=== PATIENT | female | born 1955 | race Caucasian/White ===

== ENCOUNTER 2019-05-31 08:19 | Day surgery (SDC) | payer MEDICAID ==
[2019-05-29 09:30] LABS: BASOPHILS % (AUTO) 0.4 % (0-1); EOSINOPHILS # (AUTO) 0.1 X10'3 (0-0.9); EOSINOPHILS % (AUTO) 0.9 % (0-6); HEMATOCRIT 48.3 % (35.0-45.0); HEMOGLOBIN 15.6 g/dl (12.0-16.0); LYMPHOCYTES # (AUTO) 1.7 X10'3 (1.1-4.8); LYMPHOCYTES % (AUTO) 27.7 % (21-51); MEAN CORPUSCULAR HEMOGLOBIN 31.1 PG (27.0-31.0); MEAN CORPUSCULAR HGB CONC 32.3 g/dL (33.0-36.5); MEAN CORPUSCULAR VOLUME 96.2 FL (78-98); MEAN PLATELET VOLUME 7.6 FL (7.4-10.4); MONOCYTES # (AUTO) 0.4 X10'3 (0-0.9); MONOCYTES % (AUTO) 6.7 % (2-12); NEUTROPHILS # (AUTO) 3.9 X10'3 (1.8-7.7); NEUTROPHILS % (AUTO) 64.3 % (42-75); PLATELET COUNT 233 X10'3 (140-440); RED BLOOD COUNT 5.03 X10'6 (4.20-5.60); RED CELL DISTRIBUTION WIDTH 15.8 % (11.5-14.5); WHITE BLOOD COUNT 6.1 X10'3 (4.5-11.0)
[2019-05-29 09:44] LABS: PARTIAL THROMBOPLASTIN TIME 29 SECONDS (22-32)
[2019-05-29 09:46] LABS: ALANINE AMINOTRANSFERASE 31 U/L (12-78); ALBUMIN 3.9 G/DL (3.4-5.0); ALBUMIN/GLOBULIN RATIO 1.2 (1.1-1.5); ALKALINE PHOSPHATASE 102 IU/L (46-116); ANION GAP 12 (8-16); ASPARTATE AMINO TRANSFERASE 17 U/L (10-37); BILIRUBIN,TOTAL 0.4 MG/DL (0.1-1.0); BLOOD UREA NITROGEN 10 MG/DL (7-18); BUN/CREATININE RATIO 10.3 (6.6-38.0); CALCIUM 9.4 MG/DL (8.5-10.1); CHLORIDE 110 MMOL/L (99-107); CREATININE 0.97 MG/DL (0.40-0.90); GLUCOSE 129 MG/DL (70-104); POTASSIUM 3.9 MMOL/L (3.5-5.1); SODIUM 142 MMOL/L (135-145); TOTAL CARBON DIOXIDE 19.8 MMOL/L (24-32); TOTAL PROTEIN 7.2 G/DL (6.4-8.2); eGFR 58 ML/MIN
[2019-05-31] VITALS (14 sets, daily range): BP systolic 91–166; BP diastolic 45–87
[~2019-05-31] VITALS: Ht 170.2 cm; Wt 107.4 kg
[2019-05-31] MEDS ORDERED: nitroGLYCERIN 0.4mg SUBLingual tab SL PRN (08:35)
[2019-05-31] MEDS ORDERED: normal saline 1,000 ML IV SCH (08:40)
[2019-05-31] MEDS ORDERED: diphenhydrAMINE 25mg capsule PO PRN (08:40)
[2019-05-31] MEDS ORDERED: LORazepam 0.5 MG tablet PO PRN (08:40)
[2019-05-31] MEDS ORDERED: ATOR40TA PO (09:16)
[2019-05-31] MEDS ORDERED: OMEP40CA13 PO (09:16)
[2019-05-31] MEDS ORDERED: ESCI5TAB PO (09:16)
[2019-05-31] MEDS ORDERED: NITR0.4T48 SL (09:16)
[2019-05-31] MEDS ORDERED: TOPI25TA15 PO (09:16)
[2019-05-31] MEDS ORDERED: ASPI-1264 PO (09:16)
[2019-05-31] MEDS ORDERED: midazolam 2 mg/2 ml injection ONE (12:48)
[2019-05-31] MEDS ORDERED: fentaNYL/PF 50MCG/1 ML 2ML syringe ONE (12:49)
[2019-05-31] MEDS ORDERED: iohexol 350MG/ML 100ml bottle IV ONE (12:49)
[2019-05-31] MEDS ORDERED: LIDOcaine 1% (10mg/ml)w/preservative injection 20ml MDV ONE (12:49)
[2019-05-31] MEDS ORDERED: iohexol 350 MG/ML 50ML vial IV ONE (12:49)
[2019-05-31] MEDS ORDERED: HYDROcodone/acetaminophen 5mg/325mg tablet PO PRN (19:10)
[2019-05-31] MEDS ORDERED: OXAZEpam 15mg capsule PO PRN (19:10)
[2019-05-31] MEDS ORDERED: ondansetron/PF 4mg/2ml inj IV PRN (19:10)
[2019-05-31] MEDS ORDERED: proCHLORperazine 10 MG/2 ml inj IV PRN (19:10)
[2019-05-31] MEDS ORDERED: HYDROcodone/acetaminophen 10/325mg tab PO PRN (19:10)
== END 2019-05-31 19:50 | disposition home or self-care (01) ==
LOC: SSTAY O 08:19
PROVIDERS: ATTEND Internal Medicine Cardiovascular Disease
DX: I25.10 Atherosclerotic heart disease of native coronary artery without angina pectoris (principal); I25.82 Chronic total occlusion of coronary artery; M19.90 Unspecified osteoarthritis, unspecified site; F41.1 Generalized anxiety disorder; K21.9 Gastro-esophageal reflux disease without esophagitis; F17.210 Nicotine dependence, cigarettes, uncomplicated; I25.2 Old myocardial infarction; E11.9 Type 2 diabetes mellitus without complications; E78.00 Pure hypercholesterolemia, unspecified; J44.9 Chronic obstructive pulmonary disease, unspecified; F31.9 Bipolar disorder, unspecified; E66.9 Obesity, unspecified; Z68.37 Body mass index [BMI] 37.0-37.9, adult; Z88.1 Allergy status to other antibiotic agents; Z88.8 Allergy status to other drugs, medicaments and biological substances; Z79.82 Long term (current) use of aspirin; Z79.899 Other long term (current) drug therapy; Z90.49 Acquired absence of other specified parts of digestive tract; Z98.890 Other specified postprocedural states; Z96.60 Presence of unspecified orthopedic joint implant; Z79.01 Long term (current) use of anticoagulants
CPT/HCPCS: 36415; 71046; 80053; 83880; 85025; 85610; 85730; 93005; 93458; 99152; C1769; J1644; J2001; J2250; J3010; J7030; Q0163; Q9967; 76937; A4620; A6258; C1760

== ENCOUNTER 2020-09-20 10:10 | Inpatient (IN) | payer MEDICAID ==
[2020-09-17 14:20] LABS: BASOPHILS % (AUTO) 0.7 % (0-1); EOSINOPHILS # (AUTO) 0.1 X10'3 (0-0.9); EOSINOPHILS % (AUTO) 1.2 % (0-6); LYMPHOCYTES # (AUTO) 2.1 X10'3 (1.1-4.8); LYMPHOCYTES % (AUTO) 34.7 % (21-51); MEAN CORPUSCULAR HEMOGLOBIN 31.8 PG (27.0-31.0); MEAN CORPUSCULAR HGB CONC 32.9 g/dL (33.0-36.5); MEAN CORPUSCULAR VOLUME 96.7 FL (78-98); MEAN PLATELET VOLUME 8.5 FL (7.4-10.4); MONOCYTES # (AUTO) 0.5 X10'3 (0-0.9); MONOCYTES % (AUTO) 8.5 % (2-12); NEUTROPHILS # (AUTO) 3.3 X10'3 (1.8-7.7); NEUTROPHILS % (AUTO) 54.9 % (42-75); PRE OP HEMATOCRIT 40.4 % (35.0-45.0); PRE OP HEMOGLOBIN 13.3 g/dL (12.0-16.0); PRE OP PLATELET COUNT 170 X10'3 (140-440); RED BLOOD COUNT 4.18 X10'6 (4.20-5.60); RED CELL DISTRIBUTION WIDTH 14.9 % (11.5-14.5)
[2020-09-17 14:26] LABS: HEMOGLOBIN A1C 6.1 % (4.5-6.2)
[2020-09-17 14:29] LABS: PRE OP PROTIME 10.4 SECONDS (9.0-12.0)
[2020-09-17 14:31] LABS: ALBUMIN 3.8 G/DL (3.4-5.0); ALBUMIN/GLOBULIN RATIO 1.3 (1.1-1.5); ALKALINE PHOSPHATASE 129 IU/L (46-116); BLOOD UREA NITROGEN 12 MG/DL (7-18); BUN/CREATININE RATIO 11.4 (6.6-38.0); CALCIUM 9.1 MG/DL (8.5-10.1); CHLORIDE 111 MMOL/L (99-107); CREATININE 1.05 MG/DL (0.40-0.90); PRE OP ANION GAP 8 (8-16); PRE OP AST 56 U/L (10-37); PRE OP BILIRUB, TOTAL 0.4 MG/DL (0.0-1.0); PRE OP GLUCOSE 77 MG/DL (70-104); PRE OP POTASSIUM 4.2 MMOL/L (3.4-5.1); PRE OP SODIUM 145 MMOL/L (135-145); TOTAL CARBON DIOXIDE 25.6 MMOL/L (24-32); TOTAL PROTEIN 6.8 G/DL (6.4-8.2); eGFR 53 ML/MIN
[2020-09-17 14:32] LABS: CLARITY,URINE SLIGHTLY CLOUDY (Clear); COLOR,URINE YELLOW (Yellow); GLUCOSE, URINE NEGATIVE (Neg); KETONES,URINE NEGATIVE (Neg); LEUKOCYTE ESTERASE ,URINE NEGATIVE (Neg); NITRITES, URINE NEGATIVE (Neg); OCCULT BLOOD,URINE NEGATIVE (Neg); PROTEIN,URINE NEGATIVE (Neg); UROBILINOGEN,URINE 0.2 E.U/dL (0.2-1.0)
[2020-09-17 14:33] LABS: PRE OP ALT 99 U/L (30-65)
[2020-09-17 14:48] LABS: UA COLLECTION TYPE CLN CATCH MIDSTREAM
[2020-09-17 14:49] LABS: BACTERIA,URINE FEW /HPF (Neg); RBC,URINE 0-2 /HPF (0-2); SQUAMOUS EPITHELIAL CELL,UR FEW /LPF (FEW); WBC,URINE 0-4 /HPF (0-4)
[~2020-09-20] VITALS: Ht 170.2 cm; Wt 81.6 kg
[2020-09-20] VITALS (17 sets, daily range): BP systolic 104–138; BP diastolic 47–82
[~2020-09-20 10:10] MED LIST: ASPI-1264 PO; ATOR40TA PO; CALC1CAP PO; ESCI5TAB PO; NITR0.4T48 SL; OMEP40CA13 PO; SUMA100T16 PO; TIZA2TAB7 PO; TOPI25TA15 PO; TRAZ150T78 PO; VIT1CAPS46 PO; famotidine 20mg tablet PO ONE; ringers solution, lacted 1,000 ML IV SCH; vancomycin 1,500 MG in NS 300ml IV soln IV ONE
[2020-09-20] MEDS ORDERED: LIDOcaine 1% (10mg/ml) 2ml vial ONE (11:15)
[2020-09-20] MEDS ORDERED: BUPIVAcaine/PF 2.5 mg/ml (0.25%) 30ml vial ONE (12:07)
[2020-09-20] MEDS ORDERED: midazolam 2 mg/2 ml injection ONE (12:35)
[2020-09-20] MEDS ORDERED: fentaNYL /PF 50mcg/ml 5ml ampule ONE ×2 (12:35→17:40)
[2020-09-20] MEDS ORDERED: propofol inj 20 ML IV ONE (12:35)
[2020-09-20] MEDS ORDERED: LIDOcaine 2% (20mg/ml) 5ml vial ONE (12:35)
[2020-09-20] MEDS ORDERED: ondansetron/PF 4mg/2ml inj ONE ×2 (13:00→14:30)
[2020-09-20] MEDS ORDERED: sevoflurane 250ml liquid IH ONE (13:00)
[2020-09-20] MEDS ORDERED: neostigmine methylsulfate 1 MG/ML 10ml vial ONE ×2 (13:00→18:12)
[2020-09-20] MEDS ORDERED: dexamethasone sod phosphate 10mg/ml inj ONE (13:00)
[2020-09-20] MEDS ORDERED: rocuronium 10mg/ml inj IV ONE (13:00)
[2020-09-20] MEDS ORDERED: MIDAZolam 5mg/5ml vial ONE (13:09)
[2020-09-20] MEDS ORDERED: pancuronium br 1mg/ml inj IV ONE (14:22)
[2020-09-20] MEDS ORDERED: BUPIVAcaine/PF 2.5mg/ml (0.25%) 10ml vial ONE (15:17)
[2020-09-20] MEDS ORDERED: BUPIVACAINE liposomal/PF 13.3 MG/ML vial IM ONE (15:17)
[2020-09-20] MEDS ORDERED: ringers solution, lacted 1,000 ML IV SCH (17:30)
[2020-09-20] MEDS ORDERED: proCHLORperazine 10 MG/2 ml inj IV PRN (17:30)
[2020-09-20] MEDS ORDERED: meperidine/PF 25mg/ml syringe IV PRN ×3 (17:30)
[2020-09-20] MEDS ORDERED: morphine 4 MG/ML inj SYRINge IV PRN ×3 (17:30→18:35)
[2020-09-20] MEDS ORDERED: ondansetron/PF 4mg/2ml inj IV PRN ×2 (17:30→18:35)
[2020-09-20] MEDS ORDERED: morphine 2 MG/ML inj. syringe IV PRN (17:30)
[2020-09-20] MEDS ORDERED: acetaminophen 1,000mg/100ml IV 100 ML IV ONE (17:45)
[2020-09-20] MEDS ORDERED: glycopyrrolate 0.2mg/ml inj ONE (18:12)
--- NOTE | 2020-09-20 18:17 | NUR ---
Received from OR via ACCE BED , accompanied by Anesthesiologist ARIEL and report given by Anesthesiolgist. PATIENT WITH VSS. DENIES PAIN. TED DANIEL DONNED FOR LOW TEMPERATURE, TRIPLE LUMEN RIGHT NECK DRESSING IS CDI. ART LINE IN RIGHT UE WELL 20G PIV IN RIGHT UE. ALL PATENT. VSS. SCDS DONNED. SINGLE LUMEN CHEST TUBE WITH NO DRAINAGE PRESENT. AIR LEAK EVIDENT. ALBERT CATHETER PRESENT WITH CLEAR YELLOW URINE IN ATRIUM. VSS AT THIS TIME Addendum: 09/20/20 at 1828 by Marshall Crooks RN, RN Amended: Links added.
[2020-09-20] MEDS ORDERED: naloxone 0.4 mg/ml inj IV PRN (18:35)
[2020-09-20] MEDS ORDERED: CADD PCA waste documentation MC PRN (18:35)
[2020-09-20] MEDS ORDERED: HYDROcodone/acetaminophen 10/325mg tab PO PRN (18:35)
[2020-09-20] MEDS ORDERED: metoclopramide 5 mg/ml inj IV PRN (18:35)
[2020-09-20] MEDS ORDERED: albuterol 2.5 MG/3 ML nebule NEB PRN (18:35)
[2020-09-20 18:45] LABS: ABG BASE EXCESS -6.9 mmol/L (-2.0-2.0); ABG HCO3 22.5 mmol/L (22.0-26.0); ABG OXYGEN SATURATION 98.3 % (94-97); ABG PCO2 (T) 59.5 mmHg (32.0-45.0); ABG PO2 (T) 157.1 mmHg (75.0-100.0); FCOHb 0.7 % (0.0-3.9); FMetHb 0.2 % (0.0-1.5); FO2Hb 97.4 % (94-97); PATIENT TEMPERATURE 35.9; TOTAL HEMOGLOBIN 13.6 G/dl (12.0-16.0)
[2020-09-20] MEDS ORDERED: naloxone 0.4 mg/ml inj IV ONE (18:50)
--- NOTE | 2020-09-20 19:07 | NUR ---
DORA IN RR OF 135 Addendum: 09/20/20 at 1907 by Marshall Banerjee - CB RN Amended: Links added.
[2020-09-20 19:46] LABS: ABG HCO3 21.4 mmol/L (22.0-26.0); ABG OXYGEN SATURATION 95.3 % (94-97); ABG PCO2 (T) 43.7 mmHg (32.0-45.0); ABG PO2 (T) 79.6 mmHg (75.0-100.0); FCOHb 0.8 % (0.0-3.9); FMetHb 0.1 % (0.0-1.5); FO2Hb 94.4 % (94-97); PATIENT TEMPERATURE 36.5; RESPIRATORY RATE 18 b/min
--- NOTE | 2020-09-20 19:47 | NUR ---
ALL CRITERIA FOR TRANSFER TO THE FLOOR HAS BEEN ACHIEVED. REPORT GIVEN AND ALL QUESTIONS ANSWERED, VSS. BED LOW 2 RAILS UP, CALL LIGHT PRESENT AND PATIENT HOOKED UP TO ALL LINES AND VSS. PATIENTS RN PRESENT TO ACCEPT CARE. BIPAP MACHINE ON STANDBY PER MD TOLLIVER. VSS. DENIES PAIN CHEST TUBE STILL WITH AIR LEAK AND NO DRAINAGE AT THIS TIME. ART LINE ZEROED AND RN AT BEDSIDE TO ASSIST WITH SET UP AND TO ACCEPT CARE OF PATIENT. Addendum: 09/20/20 at 2014 by Marshall Banerjee - CB RN Amended: Links added.
[2020-09-20] MEDS: docusate sod 100mg capsule PO SCH (21:56)
[2020-09-20] MEDS: gabapentin 300mg capsule PO SCH (21:58)
[2020-09-20] MEDS: clindamycin 600mg/D5W 50ml 50 ML IV SCH (22:00)
[2020-09-20] MEDS: potassium Cl 20mEq in D5-NS 1,000 ML IV SCH (22:07)
[2020-09-21] VITALS (7 sets, daily range): BP systolic 94–125; BP diastolic 32–58
[2020-09-21] MEDS: clindamycin 600mg/D5W 50ml 50 ML IV SCH ×4 (02:31→19:14)
[2020-09-21] MEDS: HYDROcodone/acetaminophen 10/325mg tab PO PRN ×2 (05:02→19:09)
[2020-09-21] MEDS: potassium Cl 20mEq in D5-NS 1,000 ML IV SCH (08:45)
[2020-09-21] MEDS: docusate sod 100mg capsule PO SCH ×2 (09:20→19:11)
[2020-09-21] MEDS: gabapentin 300mg capsule PO SCH ×2 (09:21→19:12)
--- NOTE | 2020-09-21 12:00 | NUR ---
DR. TOLLIVER @ BEDSIDE, CHEST TUBE TO H20 SEAL, NEW ORDER RECEIVED: REPEAT CXR @ 1600
[2020-09-21] MEDS ORDERED: nitroGLYCERIN 0.4mg SUBLingual tab SL PRN (12:50)
[2020-09-21] MEDS ORDERED: SUMAtriptan 25 MG tablet PO PRN (12:55)
[2020-09-21] MEDS ORDERED: cyclobenzaprine 10mg tablet PO PRN (13:00)
--- NOTE | 2020-09-21 15:34 | NUR ---
Patient has refused BG checks all day she states she does not want insulin either. She states she will maybe let nurse check her b/f dinner.
--- NOTE | 2020-09-21 16:11 | NUR ---
DR. TOLLIVER REVIEWED CXR. NEW ORDER RECEIVED: CHEST TUBE BACK TO SUCTION @ 20
--- NOTE | 2020-09-21 16:11 | NUR ---
Refusing BG checks states might let nurse do one prior to dinner she will think about it educated on BG, DM, and higher with body under stress and healing she stated understanding Addendum: 09/21/20 at 1621 by Lela Lewis RN Amended: Links added.
[2020-09-21] MEDS: calcium carbonate/vitamin D3 tablet PO SCH (19:10)
[2020-09-21] MEDS: lactobacillus rhamnosus 10,000 MMU CELLS/CAPSULE PO SCH (19:11)
[2020-09-21] MEDS: topiramate 100mg tablet PO SCH (19:13)
[2020-09-21] MEDS: traZODone 150mg tablet PO SCH (22:15)
[2020-09-21] MEDS: ESCITALOPRAM OXALATE 5 MG TABLET PO SCH (22:15)
[2020-09-22] MEDS: clindamycin 600mg/D5W 50ml 50 ML IV SCH ×4 (01:57→20:32)
[2020-09-22 02:00] VITALS: BP 117/56
[2020-09-22] MEDS: HYDROcodone/acetaminophen 10/325mg tab PO PRN ×3 (02:19→20:41)
--- NOTE | 2020-09-22 06:36 | NUR ---
Patient in room PCU 3013. I have received report from Petr VIVAR and had the opportunity to ask questions and assume patient care.
[2020-09-22 06:43] LABS: BASOPHILS % (AUTO) 0 % (0-1); EOSINOPHILS % (AUTO) 0.5 % (0-6); HEMATOCRIT 31.2 % (35.0-45.0); HEMOGLOBIN 10.7 g/dl (12.0-16.0); LYMPHOCYTES # (AUTO) 1.3 X10'3 (1.1-4.8); LYMPHOCYTES % (AUTO) 16.8 % (21-51); MEAN CORPUSCULAR HEMOGLOBIN 33.1 PG (27.0-31.0); MEAN CORPUSCULAR HGB CONC 34.2 g/dL (33.0-36.5); MEAN CORPUSCULAR VOLUME 96.9 FL (78-98); MEAN PLATELET VOLUME 7.9 FL (7.4-10.4); MONOCYTES # (AUTO) 0.4 X10'3 (0-0.9); MONOCYTES % (AUTO) 4.7 % (2-12); NEUTROPHILS # (AUTO) 6.1 X10'3 (1.8-7.7); PLATELET COUNT 131 X10'3 (140-440); RED BLOOD COUNT 3.22 X10'6 (4.20-5.60); RED CELL DISTRIBUTION WIDTH 14.6 % (11.5-14.5); WHITE BLOOD COUNT 7.9 X10'3 (4.5-11.0)
[2020-09-22 07:00] VITALS: BP 134/55
[2020-09-22 07:10] LABS: ALANINE AMINOTRANSFERASE 56 U/L (12-78); ALBUMIN 2.7 G/DL (3.4-5.0); ALKALINE PHOSPHATASE 96 IU/L (46-116); ANION GAP 6 (8-16); ASPARTATE AMINO TRANSFERASE 30 U/L (10-37); BILIRUBIN,TOTAL 0.5 MG/DL (0.1-1.0); BLOOD UREA NITROGEN 9 MG/DL (7-18); BUN/CREATININE RATIO 10.6 (6.6-38.0); CALCIUM 8.4 MG/DL (8.5-10.1); CHLORIDE 108 MMOL/L (99-107); CREATININE 0.85 MG/DL (0.40-0.90); GLUCOSE 122 MG/DL (70-104); MAGNESIUM 1.8 MG/DL (1.5-2.4); PHOSPHORUS 2.5 MG/DL (2.3-4.5); POTASSIUM 3.7 MMOL/L (3.5-5.1); SODIUM 140 MMOL/L (135-145); TOTAL PROTEIN 5.3 G/DL (6.4-8.2); eGFR 67 ML/MIN
[2020-09-22] MEDS: pantoprazole 40mg Tablet.DR PO SCH (07:56)
[2020-09-22] MEDS: docusate sod 100mg capsule PO SCH ×2 (07:56→20:32)
[2020-09-22] MEDS: gabapentin 300mg capsule PO SCH (07:56)
[2020-09-22] MEDS: atorvastatin 20mg tablet PO SCH (07:57)
[2020-09-22] MEDS: beta-carotene(A) w/C & E + minerals tab PO SCH (07:57)
[2020-09-22] MEDS: lactobacillus rhamnosus 10,000 MMU CELLS/CAPSULE PO SCH ×2 (07:57→20:32)
[2020-09-22] MEDS: calcium carbonate/vitamin D3 tablet PO SCH (07:57)
[2020-09-22] MEDS: topiramate 100mg tablet PO SCH ×2 (07:57→20:32)
[2020-09-22 11:00] VITALS: BP 100/47
[2020-09-22 17:00] VITALS: BP 135/56
[2020-09-22 18:00] VITALS: BP 103/48
--- NOTE | 2020-09-22 18:11 | NUR ---
Problems reprioritized. Patient report given, questions answered & plan of care reviewed with Juanito VIVAR.
[2020-09-22] MEDS: ESCITALOPRAM OXALATE 5 MG TABLET PO SCH (20:32)
[2020-09-22] MEDS: traZODone 150mg tablet PO SCH (20:32)
[2020-09-22] MEDS ORDERED: magnesium hydroxide 30ml (MOM) UD suspension PO ONE (20:35)
[2020-09-22 22:00] VITALS: BP 93/43
--- NOTE | 2020-09-22 22:00 | NUR ---
PT'S SATS DOWN TO 90% ON RA. PLACED ON 2 LPM O2 OVERNIGHT.
[2020-09-23] VITALS (9 sets, daily range): BP systolic 94–114; BP diastolic 43–58
[2020-09-23] MEDS: clindamycin 600mg/D5W 50ml 50 ML IV SCH ×4 (01:59→19:42)
[2020-09-23 06:34] LABS: BASOPHILS % (AUTO) 0.1 % (0-1); EOSINOPHILS # (AUTO) 0.1 X10'3 (0-0.9); EOSINOPHILS % (AUTO) 0.8 % (0-6); HEMATOCRIT 32.8 % (35.0-45.0); HEMOGLOBIN 10.9 g/dl (12.0-16.0); LYMPHOCYTES # (AUTO) 1.3 X10'3 (1.1-4.8); MEAN CORPUSCULAR HEMOGLOBIN 32.5 PG (27.0-31.0); MEAN CORPUSCULAR HGB CONC 33.3 g/dL (33.0-36.5); MEAN CORPUSCULAR VOLUME 97.6 FL (78-98); MEAN PLATELET VOLUME 7.8 FL (7.4-10.4); MONOCYTES # (AUTO) 0.3 X10'3 (0-0.9); NEUTROPHILS # (AUTO) 4.7 X10'3 (1.8-7.7); NEUTROPHILS % (AUTO) 74.1 % (42-75); PLATELET COUNT 130 X10'3 (140-440); RED BLOOD COUNT 3.36 X10'6 (4.20-5.60); RED CELL DISTRIBUTION WIDTH 14.6 % (11.5-14.5); WHITE BLOOD COUNT 6.3 X10'3 (4.5-11.0)
[2020-09-23 06:54] LABS: ALANINE AMINOTRANSFERASE 48 U/L (12-78); ALBUMIN 2.6 G/DL (3.4-5.0); ALBUMIN/GLOBULIN RATIO 0.9 (1.1-1.5); ALKALINE PHOSPHATASE 101 IU/L (46-116); ANION GAP 3 (8-16); ASPARTATE AMINO TRANSFERASE 26 U/L (10-37); BILIRUBIN,TOTAL 0.5 MG/DL (0.1-1.0); BLOOD UREA NITROGEN 8 MG/DL (7-18); CALCIUM 8.5 MG/DL (8.5-10.1); CHLORIDE 110 MMOL/L (99-107); GLUCOSE 110 MG/DL (70-104); PHOSPHORUS 2.3 MG/DL (2.3-4.5); POTASSIUM 4.1 MMOL/L (3.5-5.1); SODIUM 143 MMOL/L (135-145); TOTAL CARBON DIOXIDE 30.4 MMOL/L (24-32); TOTAL PROTEIN 5.5 G/DL (6.4-8.2); eGFR 72 ML/MIN
--- NOTE | 2020-09-23 07:00 | NUR ---
Patient in room PCU 3013. I have received report from Juanito VIVAR and had the opportunity to ask questions and assume patient care.
--- NOTE | 2020-09-23 07:04 | NUR ---
Problems reprioritized. Patient report given, questions answered & plan of care reviewed with PEACE. Addendum: 09/23/20 at 0705 by Tim Daniel RN Amended: Links added.
[2020-09-23] MEDS: docusate sod 100mg capsule PO SCH ×2 (08:38→19:42)
[2020-09-23] MEDS: lactobacillus rhamnosus 10,000 MMU CELLS/CAPSULE PO SCH ×2 (08:38→19:42)
[2020-09-23] MEDS: atorvastatin 20mg tablet PO SCH (08:38)
[2020-09-23] MEDS: beta-carotene(A) w/C & E + minerals tab PO SCH (08:39)
[2020-09-23] MEDS: topiramate 100mg tablet PO SCH ×2 (08:39→19:42)
[2020-09-23] MEDS: calcium carbonate/vitamin D3 tablet PO SCH (08:39)
[2020-09-23] MEDS: pantoprazole 40mg Tablet.DR PO SCH (08:51)
[2020-09-23] MEDS: aspirin 325mg tablet PO SCH (09:15)
[2020-09-23] MEDS ORDERED: fentaNYL/PF 50MCG/1 ML 2ML syringe ONE (09:58)
[2020-09-23] MEDS: HYDROcodone/acetaminophen 10/325mg tab PO PRN ×2 (15:39→19:42)
--- NOTE | 2020-09-23 18:20 | NUR ---
Patient in room PCU 3013. I have received report from CB Turk and had the opportunity to ask questions and assume patient care.
--- NOTE | 2020-09-23 18:30 | NUR ---
Problems reprioritized. Patient report given, questions answered & plan of care reviewed with Janis Saunders RN.
[2020-09-23] MEDS: traZODone 150mg tablet PO SCH (21:37)
[2020-09-23] MEDS: ESCITALOPRAM OXALATE 5 MG TABLET PO SCH (21:37)
[2020-09-24 02:00] VITALS: BP 110/50
[2020-09-24] MEDS: clindamycin 600mg/D5W 50ml 50 ML IV SCH ×4 (02:28→20:09)
[2020-09-24] MEDS: HYDROcodone/acetaminophen 10/325mg tab PO PRN ×3 (02:34→20:21)
[2020-09-24 06:00] VITALS: BP 106/55
--- NOTE | 2020-09-24 06:34 | NUR ---
Problems reprioritized. Patient report given, questions answered & plan of care reviewed with CB Marx.
--- NOTE | 2020-09-24 07:30 | NUR ---
Patient is refusing accu checks
[2020-09-24] MEDS: atorvastatin 20mg tablet PO SCH (07:49)
[2020-09-24] MEDS: lactobacillus rhamnosus 10,000 MMU CELLS/CAPSULE PO SCH ×2 (07:49→20:09)
[2020-09-24] MEDS: pantoprazole 40mg Tablet.DR PO SCH (07:49)
[2020-09-24] MEDS: docusate sod 100mg capsule PO SCH ×2 (07:49→20:09)
[2020-09-24] MEDS: beta-carotene(A) w/C & E + minerals tab PO SCH (07:49)
[2020-09-24] MEDS: calcium carbonate/vitamin D3 tablet PO SCH (07:50)
[2020-09-24] MEDS: topiramate 100mg tablet PO SCH ×2 (07:50→20:10)
[2020-09-24 08:05] LABS: BASOPHILS % (AUTO) 0.3 % (0-1); EOSINOPHILS # (AUTO) 0.1 X10'3 (0-0.9); EOSINOPHILS % (AUTO) 1.4 % (0-6); HEMATOCRIT 34.4 % (35.0-45.0); HEMOGLOBIN 11.7 g/dl (12.0-16.0); LYMPHOCYTES # (AUTO) 1.6 X10'3 (1.1-4.8); LYMPHOCYTES % (AUTO) 27.5 % (21-51); MEAN CORPUSCULAR HEMOGLOBIN 32.7 PG (27.0-31.0); MEAN CORPUSCULAR HGB CONC 33.9 g/dL (33.0-36.5); MEAN CORPUSCULAR VOLUME 96.7 FL (78-98); MEAN PLATELET VOLUME 8.7 FL (7.4-10.4); MONOCYTES # (AUTO) 0.4 X10'3 (0-0.9); MONOCYTES % (AUTO) 6.1 % (2-12); NEUTROPHILS # (AUTO) 3.7 X10'3 (1.8-7.7); NEUTROPHILS % (AUTO) 64.7 % (42-75); PLATELET COUNT 154 X10'3 (140-440); RED BLOOD COUNT 3.56 X10'6 (4.20-5.60); RED CELL DISTRIBUTION WIDTH 14.5 % (11.5-14.5); WHITE BLOOD COUNT 5.8 X10'3 (4.5-11.0)
[2020-09-24 08:27] LABS: ALANINE AMINOTRANSFERASE 47 U/L (12-78); ALBUMIN 2.6 G/DL (3.4-5.0); ALBUMIN/GLOBULIN RATIO 0.8 (1.1-1.5); ALKALINE PHOSPHATASE 104 IU/L (46-116); ANION GAP 4 (8-16); ASPARTATE AMINO TRANSFERASE 27 U/L (10-37); BILIRUBIN,TOTAL 0.5 MG/DL (0.1-1.0); BLOOD UREA NITROGEN 8 MG/DL (7-18); BUN/CREATININE RATIO 9.4 (6.6-38.0); CALCIUM 8.9 MG/DL (8.5-10.1); CHLORIDE 109 MMOL/L (99-107); CREATININE 0.85 MG/DL (0.40-0.90); GLUCOSE 103 MG/DL (70-104); PHOSPHORUS 2.7 MG/DL (2.3-4.5); POTASSIUM 4.3 MMOL/L (3.5-5.1); SODIUM 141 MMOL/L (135-145); TOTAL CARBON DIOXIDE 27.8 MMOL/L (24-32); TOTAL PROTEIN 5.7 G/DL (6.4-8.2); eGFR 67 ML/MIN
[2020-09-24 11:00] VITALS: BP 105/53
[2020-09-24 15:00] VITALS: BP 105/54
[2020-09-24 18:00] VITALS: BP 105/57
--- NOTE | 2020-09-24 18:34 | NUR ---
Patient in room PCU 3013. I have received report from Araseli VIVAR and had the opportunity to ask questions and assume patient care.
--- NOTE | 2020-09-24 19:40 | NUR ---
New order obtained for MOM per patients' request.
[2020-09-24] MEDS: traZODone 150mg tablet PO SCH (20:10)
[2020-09-24] MEDS: ESCITALOPRAM OXALATE 5 MG TABLET PO SCH (20:10)
[2020-09-24] MEDS: magnesium hydroxide 30ml (MOM) UD suspension PO SCH (20:10)
[2020-09-24 22:00] VITALS: BP 99/43
[2020-09-25] VITALS: BP 116/45
[2020-09-25 02:00] VITALS: BP 101/44
[2020-09-25] MEDS: clindamycin 600mg/D5W 50ml 50 ML IV SCH ×3 (02:55→14:47)
[2020-09-25] MEDS: HYDROcodone/acetaminophen 10/325mg tab PO PRN ×2 (05:51→14:56)
--- NOTE | 2020-09-25 06:22 | NUR ---
Problems reprioritized. Patient report given, questions answered & plan of care reviewed with Kala VIVAR.
--- NOTE | 2020-09-25 06:43 | NUR ---
Patient in room U 3013. I have received report from CB Castrejon and had the opportunity to ask questions and assume patient care. Patient awake in bed and in no acute distress.
--- NOTE | 2020-09-25 06:45 | NUR ---
Problems reprioritized. Patient report given, questions answered & plan of care reviewed with Kala VIVAR.
[2020-09-25 07:00] VITALS: BP 108/46
[2020-09-25] MEDS: atorvastatin 20mg tablet PO SCH (08:00)
[2020-09-25 08:29] LABS: BASOPHILS % (AUTO) 0.2 % (0-1); EOSINOPHILS # (AUTO) 0.1 X10'3 (0-0.9); EOSINOPHILS % (AUTO) 1.2 % (0-6); HEMATOCRIT 32.7 % (35.0-45.0); HEMOGLOBIN 11.1 g/dl (12.0-16.0); LYMPHOCYTES % (AUTO) 18.6 % (21-51); MEAN CORPUSCULAR HEMOGLOBIN 32.7 PG (27.0-31.0); MEAN CORPUSCULAR VOLUME 96.3 FL (78-98); MEAN PLATELET VOLUME 8.1 FL (7.4-10.4); MONOCYTES # (AUTO) 0.4 X10'3 (0-0.9); MONOCYTES % (AUTO) 7.1 % (2-12); NEUTROPHILS # (AUTO) 3.9 X10'3 (1.8-7.7); NEUTROPHILS % (AUTO) 72.9 % (42-75); PLATELET COUNT 169 X10'3 (140-440); RED CELL DISTRIBUTION WIDTH 14.4 % (11.5-14.5); WHITE BLOOD COUNT 5.4 X10'3 (4.5-11.0)
[2020-09-25] MEDS: calcium carbonate/vitamin D3 tablet PO SCH (08:48)
[2020-09-25] MEDS: magnesium hydroxide 30ml (MOM) UD suspension PO SCH (08:48)
[2020-09-25] MEDS: aspirin 325mg tablet PO SCH (08:48)
[2020-09-25 08:50] LABS: ALANINE AMINOTRANSFERASE 41 U/L (12-78); ALBUMIN 2.4 G/DL (3.4-5.0); ALBUMIN/GLOBULIN RATIO 0.8 (1.1-1.5); ALKALINE PHOSPHATASE 103 IU/L (46-116); ANION GAP 7 (8-16); ASPARTATE AMINO TRANSFERASE 22 U/L (10-37); BILIRUBIN,TOTAL 0.4 MG/DL (0.1-1.0); BLOOD UREA NITROGEN 11 MG/DL (7-18); BUN/CREATININE RATIO 14.9 (6.6-38.0); CHLORIDE 107 MMOL/L (99-107); CREATININE 0.74 MG/DL (0.40-0.90); GLUCOSE 106 MG/DL (70-104); PHOSPHORUS 3.6 MG/DL (2.3-4.5); SODIUM 142 MMOL/L (135-145); TOTAL CARBON DIOXIDE 27.7 MMOL/L (24-32); TOTAL PROTEIN 5.4 G/DL (6.4-8.2); eGFR 79 ML/MIN
[2020-09-25] MEDS: topiramate 100mg tablet PO SCH (08:50)
[2020-09-25] MEDS: beta-carotene(A) w/C & E + minerals tab PO SCH (08:50)
[2020-09-25] MEDS: pantoprazole 40mg Tablet.DR PO SCH (08:51)
[2020-09-25] MEDS: lactobacillus rhamnosus 10,000 MMU CELLS/CAPSULE PO SCH (08:51)
[2020-09-25] MEDS: docusate sod 100mg capsule PO SCH (08:57)
[2020-09-25 11:00] VITALS: BP 103/49
--- NOTE | 2020-09-25 14:19 | NUR ---
Initial: Pt s/p robotic assisted thorascopic RLL wedge resection with right lower lobectomy, node dissection, and chest tube placement. Pt on a regular diet with fluctuating PO intake averaging 75% PO intake with 50% PO intake x 3 most recent meals. LBM 09/24 documented as small, previously without a BM since 09/19. Constipation likely impacting appetite and PO intake. Pt receiving routine Colace and started on routine MoM 09/24. D/w dietary to send prunes and prune juice with next meal to further assist with bowel regularity. Will continue to follow. Recommendations: 1) Continue regular diet 2) Monitor need for ONS 3) Routine bowel care 4) Scaled weights per rx Addendum: 09/25/20 at [address] Amended: Links added.
[2020-09-25 15:00] VITALS: BP 104/53
--- NOTE | 2020-09-25 17:04 | NUR ---
Patient ambulated 900 ft prior to discharge with no issues.
--- NOTE | 2020-09-25 18:10 | NUR ---
Patient stable for discharge per MD orders. All discharge instructions reviewed and questions answered appropriately. Belongings collected and sent home with the patient. Patient has a follow up appointment set up with Dr. Jimenes for 09/27 at 0900. Patient's son educted on drainage of system. PIV discontinued. fight manager discontinued. Patient wheeled down to the lobby by her son and left via private vehicle. Patient given a written prescription for [place] on discharge.
== END 2020-09-25 18:10 | disposition home or self-care (01) | DRG 120 ==
LOC: PAS IN 10:10 → UNDOADMIN 10:10 → EDSTATUS 12:30 → PAS IN 18:32 → MED 3N 19:58 → PAS IN 19:58 → PCU 3S 09-22 06:01
PROVIDERS: ADMIT Surgery; ATTEND Surgery
PROC: 0BTF4ZZ Resection of Right Lower Lung Lobe, Percutaneous Endoscopic Approach (ICD-10-PCS; 2020-09-20)
PROC: 8E0W4CZ Robotic Assisted Procedure of Trunk Region, Percutaneous Endoscopic Approach (ICD-10-PCS; principal; 2020-09-20 13:00)
PROC: 0W9930Z Drainage of Right Pleural Cavity with Drainage Device, Percutaneous Approach (ICD-10-PCS; 2020-09-23)
PROC: 5A09357 Assistance with Respiratory Ventilation, Less than 24 Consecutive Hours, Continuous Positive Airway Pressure (ICD-10-PCS; 2020-09-23)
DX: C34.31 Malignant neoplasm of lower lobe, right bronchus or lung (principal); Z20.828 Contact with and (suspected) exposure to other viral communicable diseases
CPT/HCPCS: 32557; 36415; 36600; 71045; 71046; 71250; 77012; 80053; 81001; 82803; 82948; 83036; 83735; 84100; 85018; 85025; 85610; 85730; 86885; 86900; 86901; 86920; 87081; 87635; 93005; 94660; 94760; 97116; 97161; 97530; A4215; A4618; A6258; A6449; A7000; A7048; C1758; C9250; C9290; G0378; J0131; J1100; J2001; J2175; J2250; J2310; J2405; J2704; J2710; J3010; J3370; J3480; J3490; J7040; J7120

== ENCOUNTER 2020-10-07 10:44 | Inpatient (IN) | payer MEDICAID ==
[2020-10-07] VITALS (9 sets, daily range): BP systolic 112–147; BP diastolic 56–77
[~2020-10-07] VITALS: Ht 170.2 cm; Wt 84.4 kg
[~2020-10-07 10:44] MED LIST changes: -famotidine 20mg tablet PO ONE; -ringers solution, lacted 1,000 ML IV SCH; -vancomycin 1,500 MG in NS 300ml IV soln IV ONE
[2020-10-07 11:55] LABS: BASOPHILS % (AUTO) 0.5 % (0-1); EOSINOPHILS # (AUTO) 0.2 X10'3 (0-0.9); HEMATOCRIT 39.4 % (35.0-45.0); HEMOGLOBIN 12.9 g/dl (12.0-16.0); LYMPHOCYTES # (AUTO) 1.7 X10'3 (1.1-4.8); LYMPHOCYTES % (AUTO) 24.1 % (21-51); MEAN CORPUSCULAR HEMOGLOBIN 31.5 PG (27.0-31.0); MEAN CORPUSCULAR HGB CONC 32.8 g/dL (33.0-36.5); MEAN PLATELET VOLUME 6.9 FL (7.4-10.4); MONOCYTES # (AUTO) 0.5 X10'3 (0-0.9); MONOCYTES % (AUTO) 7.3 % (2-12); NEUTROPHILS # (AUTO) 4.7 X10'3 (1.8-7.7); NEUTROPHILS % (AUTO) 65.1 % (42-75); PLATELET COUNT 309 X10'3 (140-440); RED CELL DISTRIBUTION WIDTH 14.7 % (11.5-14.5); WHITE BLOOD COUNT 7.2 X10'3 (4.5-11.0)
[2020-10-07] MEDS ORDERED: mag hydrox/Alum hydrox/simeth 30ml oral suspension PO PRN (12:05)
[2020-10-07] MEDS ORDERED: potassium Cl 20 mEq SR tablet PO PRN ×2 (12:05)
[2020-10-07] MEDS ORDERED: bisacodyl 10mg suppository rectal RC PRN (12:05)
[2020-10-07] MEDS ORDERED: magnesium Cl slow-release 64mg tablet PO PRN (12:05)
[2020-10-07] MEDS ORDERED: diphenhydrAMINE 50 mg/ml inj IV PRN (12:05)
[2020-10-07] MEDS ORDERED: diphenhydrAMINE 25mg capsule PO PRN (12:05)
[2020-10-07] MEDS ORDERED: HYDROcodone/acetaminophen 5mg/325mg tablet PO PRN (12:05)
[2020-10-07] MEDS ORDERED: ondansetron/PF 4mg/2ml inj IV PRN (12:05)
[2020-10-07] MEDS ORDERED: ipratropium/albuterol 3ml nebule NEB PRN (12:05)
[2020-10-07] MEDS ORDERED: acetaminophen 325mg tablet PO PRN ×2 (12:05)
[2020-10-07] MEDS ORDERED: acetaminophen 650mg rectal suppository RC PRN (12:05)
[2020-10-07] MEDS ORDERED: magnesium hydroxide 30ml (MOM) UD suspension PO PRN (12:05)
[2020-10-07] MEDS ORDERED: magnesium 4gm in 100ml NS 100 ML IV PRN (12:05)
[2020-10-07] MEDS ORDERED: potassium Cl 40MEQ/1/2NS 520ml 520 ML IV PRN ×2 (12:05)
[2020-10-07] MEDS ORDERED: magnesium 2GM in 50ml NS 50 ML IV PRN (12:05)
[2020-10-07 12:11] LABS: PARTIAL THROMBOPLASTIN TIME 25 SECONDS (22-32)
[2020-10-07 12:25] LABS: ALANINE AMINOTRANSFERASE 82 U/L (12-78); ALBUMIN 3.5 G/DL (3.4-5.0); ALBUMIN/GLOBULIN RATIO 1.2 (1.1-1.5); ALKALINE PHOSPHATASE 137 IU/L (46-116); ANION GAP 7 (8-16); ASPARTATE AMINO TRANSFERASE 59 U/L (10-37); BILIRUBIN,TOTAL 0.5 MG/DL (0.1-1.0); BLOOD UREA NITROGEN 11 MG/DL (7-18); BUN/CREATININE RATIO 11.8 (6.6-38.0); CALCIUM 9.4 MG/DL (8.5-10.1); CHLORIDE 109 MMOL/L (99-107); CREATININE 0.93 MG/DL (0.40-0.90); GLUCOSE 108 MG/DL (70-104); POTASSIUM 4.8 MMOL/L (3.5-5.1); SODIUM 145 MMOL/L (135-145); TOTAL CARBON DIOXIDE 29.2 MMOL/L (24-32); TOTAL PROTEIN 6.5 G/DL (6.4-8.2); eGFR 61 ML/MIN
[2020-10-07] MEDS ORDERED: fentaNYL/PF 50MCG/1 ML 2ML syringe ONE (12:26)
[2020-10-07] MEDS ORDERED: OMEP-50 PO (12:27)
[2020-10-07] MEDS ORDERED: SUCR1TAB PO (12:27)
[2020-10-07] MEDS ORDERED: midazolam 2 mg/2 ml injection ONE (12:31)
--- NOTE | 2020-10-07 12:50 | NUR ---
breaking primary RN, pt is off unit in IR getting a chest tube
--- NOTE | 2020-10-07 13:18 | NUR ---
PT IS BACK FROM IR, SHE IS HOOKED TO SUCTION, VSS
[2020-10-07] MEDS: normal saline 1000ml 1,000 ML IV SCH ×2 (13:24→22:05)
--- NOTE | 2020-10-07 14:43 | NUR ---
patient arrived to unit with CT intact.
[2020-10-07] MEDS: HYDROcodone/acetaminophen 10/325mg tab PO PRN ×2 (15:13→19:40)
[2020-10-07] MEDS ORDERED: SUMAtriptan 25 MG tablet PO PRN (16:40)
[2020-10-07] MEDS ORDERED: nitroGLYCERIN 0.4mg SUBLingual tab SL PRN (16:40)
[2020-10-07] MEDS ORDERED: tizanidine 4mg tablet PO PRN (17:00)
[2020-10-07] MEDS: sucralfate 1 gm tablet PO SCH ×2 (17:21→21:22)
--- NOTE | 2020-10-07 18:20 | NUR ---
Problems reprioritized. Patient report given, questions answered & plan of care reviewed with Lucía VIVAR float from M/S.
--- NOTE | 2020-10-07 18:30 | NUR ---
Patient in room PCU 3024. I have received report from Jocelyne Henry and had the opportunity to ask questions and assume patient care.
[2020-10-07] MEDS: topiramate 100mg tablet PO SCH (19:36)
[2020-10-07] MEDS: K and/or MAG REPLACEMENT MC SCH (20:00)
[2020-10-07] MEDS ORDERED: temazepam 15mg capsule PO PRN (21:00)
[2020-10-07] MEDS: ESCITALOPRAM OXALATE 5 MG TABLET PO SCH (21:22)
[2020-10-07] MEDS: pantoprazole 40mg Tablet.DR PO SCH (21:22)
[2020-10-07] MEDS: traZODone 150mg tablet PO SCH (21:22)
[2020-10-08] MEDS: normal saline 1000ml 1,000 ML IV SCH (02:59)
[2020-10-08 03:00] VITALS: BP 117/57
--- NOTE | 2020-10-08 03:55 | NUR ---
Patient has chest tube placement to anterior R lung Addendum: 10/08/20 at 0714 by Lucía Zelaya RN Amended: Links added.
--- NOTE | 2020-10-08 04:07 | NUR ---
Patient has pain to right anterior chest tube site Addendum: 10/08/20 at 0411 by Lucía Zelaya RN Amended: Links added.
[2020-10-08 05:58] LABS: BASOPHILS % (AUTO) 0.4 % (0-1); EOSINOPHILS # (AUTO) 0.3 X10'3 (0-0.9); EOSINOPHILS % (AUTO) 4.9 % (0-6); HEMATOCRIT 35.8 % (35.0-45.0); HEMOGLOBIN 11.8 g/dl (12.0-16.0); LYMPHOCYTES % (AUTO) 33.1 % (21-51); MEAN CORPUSCULAR HEMOGLOBIN 31.5 PG (27.0-31.0); MEAN CORPUSCULAR HGB CONC 33.1 g/dL (33.0-36.5); MEAN CORPUSCULAR VOLUME 95.2 FL (78-98); MEAN PLATELET VOLUME 6.8 FL (7.4-10.4); MONOCYTES # (AUTO) 0.6 X10'3 (0-0.9); MONOCYTES % (AUTO) 9.2 % (2-12); NEUTROPHILS # (AUTO) 3.2 X10'3 (1.8-7.7); NEUTROPHILS % (AUTO) 52.4 % (42-75); PLATELET COUNT 283 X10'3 (140-440); RED BLOOD COUNT 3.76 X10'6 (4.20-5.60); RED CELL DISTRIBUTION WIDTH 14.3 % (11.5-14.5); WHITE BLOOD COUNT 6.2 X10'3 (4.5-11.0)
[2020-10-08 06:08] LABS: ALANINE AMINOTRANSFERASE 59 U/L (12-78); ALBUMIN 2.8 G/DL (3.4-5.0); ALKALINE PHOSPHATASE 111 IU/L (46-116); ANION GAP 6 (8-16); ASPARTATE AMINO TRANSFERASE 29 U/L (10-37); BILIRUBIN,TOTAL 0.6 MG/DL (0.1-1.0); BLOOD UREA NITROGEN 12 MG/DL (7-18); BUN/CREATININE RATIO 12.8 (6.6-38.0); CALCIUM 8.6 MG/DL (8.5-10.1); CHLORIDE 111 MMOL/L (99-107); CREATININE 0.94 MG/DL (0.40-0.90); GLUCOSE 98 MG/DL (70-104); MAGNESIUM 1.9 MG/DL (1.5-2.4); SODIUM 142 MMOL/L (135-145); TOTAL CARBON DIOXIDE 25.2 MMOL/L (24-32); TOTAL PROTEIN 5.5 G/DL (6.4-8.2); eGFR 60 ML/MIN
--- NOTE | 2020-10-08 06:30 | NUR ---
Problems reprioritized. Patient report given, questions answered & plan of care reviewed with Rehana VIVAR.
--- NOTE | 2020-10-08 06:55 | NUR ---
Patient in room PCU 3024. I have received report from Lucía VIVAR and had the opportunity to ask questions and assume patient care.
[2020-10-08 07:00] VITALS: BP 121/68
[2020-10-08] MEDS: K and/or MAG REPLACEMENT MC SCH ×2 (08:00→20:00)
[2020-10-08] MEDS: beta-carotene(A) w/C & E + minerals tab PO SCH (08:50)
[2020-10-08] MEDS: topiramate 100mg tablet PO SCH ×2 (08:50→22:00)
[2020-10-08] MEDS: calcium carbonate/vitamin D3 tablet PO SCH (08:50)
[2020-10-08] MEDS: atorvastatin 20mg tablet PO SCH (08:50)
[2020-10-08] MEDS: HYDROcodone/acetaminophen 10/325mg tab PO PRN ×3 (08:50→22:00)
[2020-10-08] MEDS: sucralfate 1 gm tablet PO SCH ×4 (08:55→21:59)
[2020-10-08] MEDS ORDERED: pneumococcal 23-VAL P-sac vacc 25 mcg/0.5ml vial IMVAC ONE (10:00)
[2020-10-08 11:00] VITALS: BP 111/60
[2020-10-08 18:00] VITALS: BP 108/62
--- NOTE | 2020-10-08 18:31 | NUR ---
Problems reprioritized. Patient report given, questions answered & plan of care reviewed with Cici VIVAR.
[2020-10-08] MEDS: traZODone 150mg tablet PO SCH (21:59)
[2020-10-08] MEDS: ESCITALOPRAM OXALATE 5 MG TABLET PO SCH (21:59)
[2020-10-08 22:00] VITALS: BP 120/72
[2020-10-08] MEDS: pantoprazole 40mg Tablet.DR PO SCH (22:00)
[2020-10-08] MEDS: HYDROmorphone inj. 0.5 MG/0.5 ML DISP.SYRIN IV PRN (23:41)
[2020-10-09 02:00] VITALS: BP 118/64
[2020-10-09 07:00] VITALS: BP 118/68
--- NOTE | 2020-10-09 07:03 | NUR ---
Problems reprioritized. Patient report given, questions answered & plan of care reviewed with CB Champion.
--- NOTE | 2020-10-09 07:04 | NUR ---
Patient in room PCU 3024. I have received report from Genoveva VIVAR and had the opportunity to ask questions and assume patient care.
[2020-10-09 07:06] LABS: BASOPHILS % (AUTO) 0.6 % (0-1); EOSINOPHILS # (AUTO) 0.6 X10'3 (0-0.9); EOSINOPHILS % (AUTO) 8.8 % (0-6); HEMOGLOBIN 11.6 g/dl (12.0-16.0); LYMPHOCYTES # (AUTO) 2.1 X10'3 (1.1-4.8); LYMPHOCYTES % (AUTO) 31.4 % (21-51); MEAN CORPUSCULAR HEMOGLOBIN 32.8 PG (27.0-31.0); MEAN CORPUSCULAR HGB CONC 34.1 g/dL (33.0-36.5); MEAN CORPUSCULAR VOLUME 96.1 FL (78-98); MEAN PLATELET VOLUME 7.2 FL (7.4-10.4); MONOCYTES # (AUTO) 0.6 X10'3 (0-0.9); NEUTROPHILS # (AUTO) 3.4 X10'3 (1.8-7.7); NEUTROPHILS % (AUTO) 50.2 % (42-75); PLATELET COUNT 249 X10'3 (140-440); RED BLOOD COUNT 3.54 X10'6 (4.20-5.60); RED CELL DISTRIBUTION WIDTH 14.3 % (11.5-14.5); WHITE BLOOD COUNT 6.7 X10'3 (4.5-11.0)
[2020-10-09 07:21] LABS: ALANINE AMINOTRANSFERASE 51 U/L (12-78); ALBUMIN 2.7 G/DL (3.4-5.0); ALKALINE PHOSPHATASE 107 IU/L (46-116); ANION GAP 6 (8-16); ASPARTATE AMINO TRANSFERASE 23 U/L (10-37); BILIRUBIN,TOTAL 0.4 MG/DL (0.1-1.0); BLOOD UREA NITROGEN 15 MG/DL (7-18); BUN/CREATININE RATIO 18.1 (6.6-38.0); CALCIUM 8.7 MG/DL (8.5-10.1); CHLORIDE 110 MMOL/L (99-107); CREATININE 0.83 MG/DL (0.40-0.90); GLUCOSE 100 MG/DL (70-104); MAGNESIUM 2.1 MG/DL (1.5-2.4); POTASSIUM 3.9 MMOL/L (3.5-5.1); SODIUM 143 MMOL/L (135-145); TOTAL CARBON DIOXIDE 26.6 MMOL/L (24-32); TOTAL PROTEIN 5.4 G/DL (6.4-8.2); eGFR 69 ML/MIN
[2020-10-09] MEDS: sucralfate 1 gm tablet PO SCH ×4 (07:39→22:13)
[2020-10-09] MEDS: beta-carotene(A) w/C & E + minerals tab PO SCH (07:39)
[2020-10-09] MEDS: calcium carbonate/vitamin D3 tablet PO SCH (07:39)
[2020-10-09] MEDS: atorvastatin 20mg tablet PO SCH (07:40)
[2020-10-09] MEDS: HYDROcodone/acetaminophen 10/325mg tab PO PRN ×3 (07:40→22:13)
[2020-10-09] MEDS: topiramate 100mg tablet PO SCH ×2 (07:40→22:13)
[2020-10-09] MEDS: K and/or MAG REPLACEMENT MC SCH ×2 (08:00→20:00)
[2020-10-09] MEDS ORDERED: aspirin 325mg tablet PO SCH (08:00)
[2020-10-09] MEDS ORDERED: pneumococcal 23-VAL P-sac vacc 25 mcg/0.5ml vial IMVAC ONE (10:00)
--- NOTE | 2020-10-09 10:23 | NUR ---
Dorian LUX is aware of patients chest tube xray results, no new orders at this time.
[2020-10-09] MEDS: HYDROmorphone inj. 0.5 MG/0.5 ML DISP.SYRIN IV PRN ×2 (10:55→23:40)
[2020-10-09 11:00] VITALS: BP 92/52
[2020-10-09 15:00] VITALS: BP 102/47
--- NOTE | 2020-10-09 18:11 | NUR ---
Patient in room PCU 3024. I have received report from CB Champion and had the opportunity to ask questions and assume patient care.
--- NOTE | 2020-10-09 18:23 | NUR ---
Problems reprioritized. Patient report given, questions answered & plan of care reviewed with Genoveva VIVAR. Pt. resting comfortably, offers no complaints.
--- NOTE | 2020-10-09 18:24 | NUR ---
[place] documentation: I have reviewed and agree with all interventions, assessments performed and documented by Noah VIVAR.
[2020-10-09 19:00] VITALS: BP 120/61
[2020-10-09] MEDS: traZODone 150mg tablet PO SCH (22:12)
[2020-10-09] MEDS: ESCITALOPRAM OXALATE 5 MG TABLET PO SCH (22:13)
[2020-10-09] MEDS: pantoprazole 40mg Tablet.DR PO SCH (22:13)
[2020-10-09 23:00] VITALS: BP 107/51
[2020-10-10 02:00] VITALS: BP 106/47
--- NOTE | 2020-10-10 06:03 | NUR ---
Problems reprioritized. Patient report given, questions answered & plan of care reviewed with CB Champion.
--- NOTE | 2020-10-10 06:40 | NUR ---
Patient in room PCU 3024. I have received report from Genoveva VIVAR and had the opportunity to ask questions and assume patient care.
[2020-10-10 07:00] VITALS: BP 99/55
[2020-10-10 07:17] LABS: ALANINE AMINOTRANSFERASE 49 U/L (12-78); ALBUMIN 2.7 G/DL (3.4-5.0); ALBUMIN/GLOBULIN RATIO 0.9 (1.1-1.5); ALKALINE PHOSPHATASE 109 IU/L (46-116); ANION GAP 9 (8-16); ASPARTATE AMINO TRANSFERASE 24 U/L (10-37); BILIRUBIN,TOTAL 0.3 MG/DL (0.1-1.0); BLOOD UREA NITROGEN 17 MG/DL (7-18); BUN/CREATININE RATIO 22.1 (6.6-38.0); CALCIUM 8.7 MG/DL (8.5-10.1); CHLORIDE 108 MMOL/L (99-107); CREATININE 0.77 MG/DL (0.40-0.90); GLUCOSE 106 MG/DL (70-104); MAGNESIUM 2.1 MG/DL (1.5-2.4); POTASSIUM 4.1 MMOL/L (3.5-5.1); SODIUM 142 MMOL/L (135-145); TOTAL CARBON DIOXIDE 25.4 MMOL/L (24-32); TOTAL PROTEIN 5.6 G/DL (6.4-8.2); eGFR 75 ML/MIN
[2020-10-10] MEDS: sucralfate 1 gm tablet PO SCH ×2 (07:24→11:50)
[2020-10-10] MEDS: calcium carbonate/vitamin D3 tablet PO SCH (07:24)
[2020-10-10] MEDS: atorvastatin 20mg tablet PO SCH (07:24)
[2020-10-10] MEDS: beta-carotene(A) w/C & E + minerals tab PO SCH (07:24)
[2020-10-10] MEDS: topiramate 100mg tablet PO SCH (07:24)
[2020-10-10] MEDS: HYDROcodone/acetaminophen 10/325mg tab PO PRN (07:35)
[2020-10-10] MEDS: K and/or MAG REPLACEMENT MC SCH (08:00)
[2020-10-10 08:15] LABS: BASOPHILS % (AUTO) 0.4 % (0-1); EOSINOPHILS # (AUTO) 0.6 X10'3 (0-0.9); HEMATOCRIT 35.9 % (35.0-45.0); HEMOGLOBIN 12.1 g/dl (12.0-16.0); LYMPHOCYTES # (AUTO) 1.5 X10'3 (1.1-4.8); LYMPHOCYTES % (AUTO) 18.3 % (21-51); MEAN CORPUSCULAR HEMOGLOBIN 32.5 PG (27.0-31.0); MEAN CORPUSCULAR HGB CONC 33.8 g/dL (33.0-36.5); MEAN CORPUSCULAR VOLUME 96.2 FL (78-98); MEAN PLATELET VOLUME 6.8 FL (7.4-10.4); MONOCYTES # (AUTO) 0.8 X10'3 (0-0.9); MONOCYTES % (AUTO) 10.2 % (2-12); NEUTROPHILS # (AUTO) 5.2 X10'3 (1.8-7.7); NEUTROPHILS % (AUTO) 64.1 % (42-75); PLATELET COUNT 229 X10'3 (140-440); RED BLOOD COUNT 3.73 X10'6 (4.20-5.60); RED CELL DISTRIBUTION WIDTH 14.3 % (11.5-14.5); WHITE BLOOD COUNT 8.1 X10'3 (4.5-11.0)
--- NOTE | 2020-10-10 10:37 | NUR ---
is clearing patient to discharge. Krystyna also at beside with approval for the patient to discharge with a pleuravac. HR trends reviewed with MD, order to place EKG prior to discharge.
[2020-10-10 11:00] VITALS: BP 99/54
[2020-10-10] MEDS ORDERED: HYDR-4383 PO (11:02)
--- NOTE | 2020-10-10 12:30 | NUR ---
Patient is stable for discharge per MD orders. All discharge instructions reviewed with patient and all questions answered. New prescription sent home with patient. PIV discontinued. library monitor discontinued. Belongings collected and sent with patient. Patient was wheeled to the lobby. Patients son picked her up in his vehicle.
--- NOTE | 2020-10-10 13:11 | NUR ---
[place] documentation: I have reviewed and agree with all interventions, assessments performed and documented by Noah VIVAR.
== END 2020-10-10 12:24 | disposition home or self-care (01) | DRG 143 ==
LOC: ER 10:45 → ED HOLD 12:05 → PCU 3S 14:39
PROVIDERS: ADMIT Family Medicine; ATTEND Family Medicine
PROC: 0W9930Z Drainage of Right Pleural Cavity with Drainage Device, Percutaneous Approach (ICD-10-PCS; principal; 2020-10-07)
PROC: 3E0234Z Introduction of Serum, Toxoid and Vaccine into Muscle, Percutaneous Approach (ICD-10-PCS; 2020-10-09)
DX: J93.83 Other pneumothorax (principal); E11.9 Type 2 diabetes mellitus without complications; E78.5 Hyperlipidemia, unspecified; I10 Essential (primary) hypertension; I25.10 Atherosclerotic heart disease of native coronary artery without angina pectoris; F41.9 Anxiety disorder, unspecified; N17.9 Acute kidney failure, unspecified; Z85.118 Personal history of other malignant neoplasm of bronchus and lung; I25.2 Old myocardial infarction; Z85.828 Personal history of other malignant neoplasm of skin; Z87.891 Personal history of nicotine dependence; Z90.2 Acquired absence of lung [part of]; Z90.49 Acquired absence of other specified parts of digestive tract; Z90.710 Acquired absence of both cervix and uterus; Z23 Encounter for immunization
CPT/HCPCS: 32557; 36415; 71045; 80053; 82948; 83735; 83880; 84484; 85025; 85610; 85730; 87081; 90732; 93005; 94640; 94760; 97161; 97530; 99285; G0378; J1170; J2250; J3010; J7030

== ENCOUNTER 2024-11-10 07:43 | Day surgery (SDC) | payer MEDICARE, MEDICAID ==
[2024-11-03 14:38] LABS: BASOPHILS % (AUTO) 0.6 % (0-1); EOSINOPHILS # (AUTO) 0.1 X10'3 (0-0.9); EOSINOPHILS % (AUTO) 1.3 % (0-6); LYMPHOCYTES # (AUTO) 2.6 X10'3 (1.1-4.8); MEAN CORPUSCULAR HEMOGLOBIN 32.3 PG (27.0-31.0); MEAN CORPUSCULAR HGB CONC 33.1 g/dL (33.0-36.5); MEAN CORPUSCULAR VOLUME 97.5 FL (78-98); MEAN PLATELET VOLUME 7.8 FL (7.4-10.4); MONOCYTES # (AUTO) 0.6 X10'3 (0-0.9); MONOCYTES % (AUTO) 8.6 % (2-12); NEUTROPHILS # (AUTO) 3.7 X10'3 (1.8-7.7); NEUTROPHILS % (AUTO) 52.5 % (42-75); PRE OP HEMATOCRIT 45.7 % (35.0-45.0); PRE OP HEMOGLOBIN 15.1 g/dL (12.0-16.0); PRE OP PLATELET COUNT 236 X10'3 (140-440); PRE OP WHITE BLOOD COUNT 7.1 10'3 (4.8-10.8); RED BLOOD COUNT 4.69 X10'6 (4.20-5.60); RED CELL DISTRIBUTION WIDTH 14.8 % (11.5-14.5)
[2024-11-03 14:58] LABS: ALBUMIN 4.1 G/DL (3.4-5.0); ALBUMIN/GLOBULIN RATIO 1.2 (1.1-1.5); ALKALINE PHOSPHATASE 136 IU/L (46-116); BLOOD UREA NITROGEN 13 MG/DL (7-18); BUN/CREATININE RATIO 16.3 (10.0-20.0); CALCIUM 9.6 MG/DL (8.5-10.1); CHLORIDE 108 MMOL/L (99-107); PRE OP ALT 34 U/L (30-65); PRE OP ANION GAP 9 (8-16); PRE OP AST 20 U/L (10-37); PRE OP BILIRUB, TOTAL 0.5 MG/DL (0.0-1.0); PRE OP GLUCOSE 107 MG/DL (70-104); PRE OP SODIUM 144 MMOL/L (135-145); TOTAL CARBON DIOXIDE 27.4 MMOL/L (24-32); TOTAL PROTEIN 7.5 G/DL (6.4-8.2); eGFR 71 ML/MIN
[2024-11-03 14:59] LABS: PRE OP PROTIME 10.3 SECONDS (9.0-12.0)
[~2024-11-10] VITALS: Ht 167.6 cm; Wt 83.1 kg
[2024-11-10] VITALS (13 sets, daily range): BP systolic 113–187; BP diastolic 59–82; PULSE 55–93; RESP 13–24; TEMP 97.6; O2SAT 93–100
[2024-11-10] MEDS: famotidine 20mg tablet PO ONE (05:30)
[~2024-11-10 07:43] MED LIST changes: +ATOR10TA70 PO; -ATOR40TA PO; -CALC1CAP PO; -ESCI5TAB PO; +FAMO40TA86 PO; -OMEP40CA13 PO; +TIZA-189 PO; -TIZA2TAB7 PO; -TRAZ150T78 PO; +clindamycin-Cleocin 900mg/D5W 50 ML IV ONE
[2024-11-10] MEDS: ringers solution, lacted 1,000 ML IV SCH (08:59)
[2024-11-10] MEDS ORDERED: BUPIVAcaine 2.5mg/ml inj 50ml vial (contains preservative) ONE (09:29)
[2024-11-10] MEDS ORDERED: fentaNYL/PF 50MCG/1 ML 2ML syringe ONE (09:38)
[2024-11-10] MEDS ORDERED: midazolam 1 mg/ML 2ml injection ONE (09:38)
[2024-11-10] MEDS ORDERED: ondansetron/PF 4mg/2ml inj ONE (09:40)
[2024-11-10] MEDS ORDERED: rocuronium 10mg/ml inj IV ONE (09:40)
[2024-11-10] MEDS ORDERED: glycopyrrolate 0.2mg/ml inj ONE ×2 (09:40)
[2024-11-10] MEDS ORDERED: propofol inj 20 ML IV ONE (09:40)
[2024-11-10] MEDS ORDERED: neostigmine methylsulfate 1 MG/ML 10ml vial ONE (09:40)
[2024-11-10] MEDS ORDERED: LIDOcaine 2% (20mg/ml) 5ml vial ONE (09:40)
[2024-11-10] MEDS ORDERED: dexamethasone sod phosphate 4mg/ml inj. ONE (09:40)
[2024-11-10 09:57] LABS: BILIRUBIN,URINE NEGATIVE (Neg); CLARITY,URINE CLEAR (Clear); COLOR,URINE YELLOW (Yellow); GLUCOSE, URINE NEGATIVE (Neg); KETONES,URINE NEGATIVE (Neg); LEUKOCYTE ESTERASE ,URINE NEGATIVE (Neg); NITRITES, URINE NEGATIVE (Neg); OCCULT BLOOD,URINE TRACE-INTACT (Neg); PH,URINE 5.5 (4.8-8.0); PROTEIN,URINE NEGATIVE (Neg); UROBILINOGEN,URINE 0.2 E.U/dL (0.2-1.0)
[2024-11-10 10:05] LABS: BACTERIA,URINE NONE SEEN /HPF (Neg); MUCUS STRANDS FEW /LPF (Neg); RBC,URINE 0-2 /HPF (0-2); SQUAMOUS EPITHELIAL CELL,UR FEW /LPF (FEW); UA COLLECTION TYPE CLN CATCH MIDSTREAM; WBC,URINE NONE SEEN /HPF (0-4)
[2024-11-10] MEDS ORDERED: desflurane 240ml liquid inh. IH ONE (10:19)
[2024-11-10] MEDS ORDERED: acetaminophen 1,000mg/100ml IV 100 ML IV ONE (10:40)
[2024-11-10] MEDS ORDERED: ePHEDrine 50MG/ML INJ. ONE (10:48)
[2024-11-10] MEDS ORDERED: ringers solution, lacted 1,000 ML IV SCH (10:55)
[2024-11-10] MEDS ORDERED: morphine 4 MG/ML inj SYRINge IV PRN (10:55)
[2024-11-10] MEDS ORDERED: labetalol 20mg/4ml (5mg/ml) syringe IV PRN (10:55)
[2024-11-10] MEDS ORDERED: ondansetron/PF 4mg/2ml inj IV PRN (10:55)
[2024-11-10] MEDS ORDERED: hydrALAZINE 20mg/ml inj. IV PRN (10:55)
[2024-11-10] MEDS ORDERED: fentaNYL/PF 50MCG/1 ML 2ML syringe IV PRN ×2 (10:55)
[2024-11-10] MEDS: morphine 2 MG/ML inj. syringe IV PRN (12:31)
[2024-11-10] MEDS: HYDROcodone/acetaminophen 5mg/325mg tablet PO ONE (13:50)
== END 2024-11-10 14:15 | disposition home or self-care (01) ==
LOC: PAS 07:43
PROVIDERS: ATTEND Surgery
DX: K43.9 Ventral hernia without obstruction or gangrene (principal); E11.9 Type 2 diabetes mellitus without complications; C34.31 Malignant neoplasm of lower lobe, right bronchus or lung; I25.10 Atherosclerotic heart disease of native coronary artery without angina pectoris; I25.2 Old myocardial infarction; J44.9 Chronic obstructive pulmonary disease, unspecified; Z79.01 Long term (current) use of anticoagulants; Z79.899 Other long term (current) drug therapy; G43.909 Migraine, unspecified, not intractable, without status migrainosus; F41.9 Anxiety disorder, unspecified; E78.5 Hyperlipidemia, unspecified; Z90.49 Acquired absence of other specified parts of digestive tract; Z88.8 Allergy status to other drugs, medicaments and biological substances; Z98.890 Other specified postprocedural states; Z96.651 Presence of right artificial knee joint; Z90.710 Acquired absence of both cervix and uterus
CPT/HCPCS: 36415; 49593; 49623; 71046; 74176; 80053; 81001; 82948; 85025; 85610; 85730; 93005; A4215; A4618; C1758; C1781; J0131; J1100; J2003; J2250; J2270; J2405; J2704; J2710; J3010; J3490; J7030; J7120; Z7506; Z7508; Z7512; Z7610